=== PATIENT | female | born 2000 | race American Indian/Alaskan Native ===

== ENCOUNTER 2022-03-14 12:35 | Emergency (ER) | payer SELFPAY ==
[2022-03-14 14:50] VITALS: BP 119/78
--- NOTE | 2022-03-14 15:16 | XRay Report ---
CHEST 2 VIEWS INDICATION / CLINICAL INFORMATION: chest pain. COMPARISON: None available. FINDINGS: SUPPORT DEVICES: Cardiac valve prosthesis and prior sternotomy. HEART / MEDIASTINUM: No significant abnormality. LUNGS / PLEURA: No significant pulmonary or pleural abnormality. No pneumothorax. ADDITIONAL FINDINGS: No significant additional findings. IMPRESSION: 1. No acute findings. Signer Name: Chan Luis MD Signed: 03/14/2022 3:12 PM Workstation Name: [id number]
--- NOTE | 2022-03-16 12:08 | Electrocardiograph Report ---
[facility] Test Date: 2022-03-14 Test Time: 15:13:30 Pat Name: FEDERICO NIEVES Department: Room: Gender: F Cleaning Maid: BRODERICK : 2000 Requested By: SUSIE PUGA Order Number: [id number] Reading MD: Marshall Guerin Measurements Intervals Purdum Rate: 72 P: 56 WI: 192 QRS: 69 QRSD: 79 T: 50 QT: 416 QTc: 454 Interpretive Statements Sinus rhythm Probable left atrial enlargement No previous ECG available for comparison Electronically Signed On 03-16-2022 12:07:58 EDT by Marshall Guerin
== END 2022-03-15 11:08 | disposition left against medical advice (07) ==
LOC: ED 12:35
DX: R07.89 Other chest pain (principal); Z53.21 Procedure and treatment not carried out due to patient leaving prior to being seen by health care provider
CPT/HCPCS: 71046; 93005

== ENCOUNTER 2022-07-20 01:56 | Emergency (ER) | payer OTHER ==
--- NOTE | 2022-07-20 03:09 | Emergency Department Report ---
ED General Adult HPI - General Chief complaint: Animal Bite Stated complaint: INSECT IN LT EAR Source: patient Mode of arrival: Ambulatory Limitations: No Limitations - History of Present Illness Initial comments: Is a 22-year-old female who presents for left ear pain states foreign body versus insect in left ear. Incident happened approximately 4 hours ago. Patient denies drainage there is no fevers no chills. Patient not sure if insect is in week. - Related Data Previous Rx's Medication Instructions Recorded Last Taken Type Ciprofloxacin HCl/Dexameth 2 drop BID 7 Days #7.5 ml 07/20/22 Unknown Rx [Ciprodex Otic Suspension] Allergies Allergy/AdvReac Type Severity Reaction Status Date / Time No Known Allergies Allergy Verified 03/14/22 14:47 ED Review of Systems ROS: Stated complaint: INSECT IN LT EAR Other details as noted in HPI Constitutional: denies: chills, fever Eyes: denies: eye pain, eye discharge, vision change ENT: ear pain (Insect left ear). denies: throat pain Respiratory: denies: cough, shortness of breath, wheezing Cardiovascular: denies: chest pain, palpitations Endocrine: no symptoms reported Gastrointestinal: denies: abdominal pain, nausea, diarrhea Genitourinary: denies: urgency, dysuria, discharge Musculoskeletal: denies: back pain, joint swelling, arthralgia Skin: denies: rash, lesions Neurological: denies: headache, weakness, paresthesias, vertigo Psychiatric: denies: anxiety, depression Hematological/Lymphatic: denies: easy bleeding, easy bruising ED Past Medical Hx - Medications Home Medications: Home Medications Medication Instructions Recorded Confirmed Last Taken Type Ciprofloxacin HCl/Dexameth 2 drop BID 7 Days #7.5 ml 07/20/22 Unknown Rx [Ciprodex Otic Suspension] ED Physical Exam - General Limitations: No Limitations General appearance: alert, in no apparent distress - Head Head exam: Present: normocephalic, normal inspection - Eye Eye exam: Present: PERRL, EOMI Pupils: Present: normal accommodation - ENT ENT exam: Present: mucous membranes moist, normal external ear exam - Expanded ENT Exam Expanded Ear exam: Present: normal external inspection TM/Canal exam: Erythema: Left TM, Canal Tenderness: Left TM (Moderate erythema swelling) Mouth exam: Absent: trismus Teeth exam: Present: normal inspection. Absent: dental caries - Neck Neck exam: Present: normal inspection, full ROM. Absent: tenderness, lymphadenopathy - Respiratory Respiratory exam: Present: normal lung sounds bilaterally. Absent: respiratory distress, wheezes - Cardiovascular Cardiovascular Exam: Present: regular rate, normal rhythm, normal heart sounds. Absent: systolic murmur, diastolic murmur, rubs, gallop - GI/Abdominal GI/Abdominal exam: Present: soft, normal bowel sounds. Absent: distended, tenderness - Rectal Rectal exam: Present: deferred - Extremities Exam Extremities exam: Present: normal inspection, full ROM, normal capillary refill - Back Exam Back exam: Present: normal inspection, full ROM - Neurological Exam Neurological exam: Present: alert, oriented X3, CN II-XII intact, normal gait - Psychiatric Psychiatric exam: Present: normal affect, normal mood - Skin Skin exam: Present: warm, dry, intact, normal color ED Course Vital Signs 07/20/22 02:08 Temperature 98.4 F Pulse Rate 82 Respiratory 17 Rate Blood Pressure 146/106 [Right] O2 Sat by Pulse 99 Oximetry ED Medical Decision Making - Medical Decision Making . Irrigated with sterile saline triage nurse. ENT exam moderate erythema left ear canal no foreign body TM visualized clear. Plan DC to home, diagnosis OE, Ciprodex drops twice daily x7 days. Follow-up with ENT if not improving. Patient verbalized agreement and understanding of discharge plan. Patient DC'd home in stable condition at this time. Critical care attestation.: If time is entered above; I have spent that time in minutes in the direct care of this critically ill patient, excluding procedure time. ED Disposition Clinical Impression: Otitis externa Qualifiers: Otitis externa type: unspecified type Chronicity: acute Laterality: left Qualified Code(s): H60.502 - Unspecified acute noninfective otitis externa, left ear Disposition: HOME / SELF CARE / HOMELESS Is pt being admited?: No Does the pt Need Aspirin: No Condition: Stable Instructions: Otitis Externa, [id number], Ear Drops, Adult Additional Instructions: Use medications as directed. Follow-up with ear nose and throat doctor in 2 to 3 days. Return to emergency department should symptoms worsen Prescriptions: Ciprofloxacin HCl/Dexameth [Ciprodex Otic Suspension] 2 drop BID 7 Days #7.5 ml Referrals: LOPEZ RODRIGUEZ MD [Referring] - 3-5 Days Forms: Work/School Release Form(ED) Time of Disposition: 03:14
[2022-07-20 03:56] VITALS: BP 137/88
== END 2022-07-20 03:37 | disposition home or self-care (01) ==
LOC: ED 01:56
DX: H60.92 Unspecified otitis externa, left ear (principal); Z79.899 Other long term (current) drug therapy
CPT/HCPCS: 99283